=== PATIENT | female | born 1960 | race Caucasian/White ===

== ENCOUNTER 2017-06-23 07:37 | Day surgery (SDC) | payer OTHER ==
[~2017-06-23] VITALS: Ht 162.6 cm; Wt 77.3 kg
[2017-06-23] MEDS ORDERED: DEXILANT60 MG PO (09:38)
[2017-06-23] MEDS ORDERED: METFORMIN HCL500 M1 PO (09:38)
[2017-06-23] MEDS ORDERED: LISINOPRIL-HCTZ1 T13 PO (09:38)
[2017-06-23] MEDS ORDERED: CELEXA10 MG PO (09:38)
[2017-06-23 09:39] VITALS: BP 132/80; Ht 162.6 cm; Wt 77.3 kg
[2017-06-23 09:54] LABS: BASOPHILS 0.3 % (0-2); EOSINOPHILS 2.3 % (0-7); HEMATOCRIT 41.7 % (36.0-48.0); IMMATURE GRANULOCYTES 0.4 % (0-5); LYMPHOCYTES 33.5 % (15-50); MCH 29.4 pg (26.0-34.0); MCHC 33.6 g/dL (31.0-37.0); MCV 87.6 fL (80.0-100.0); MEAN PLATELET VOLUME 10.5 fL (7.4-10.4); MONOCYTES 7.4 % (2-11); NEUTROPHILS 56.1 % (40-80); PLATELET COUNT 294 10x3/uL (130-400); RBC 4.76 10x6/uL (4.00-5.40); RDW 12.7 % (11.5-14.5); WBC 7.1 10x3/uL (4.8-10.8)
[2017-06-23 10:12] LABS: CALC OSMOLALITY 278 mosm/kg (275-300); CALCIUM 10.1 mg/dL (8.5-10.1); CARBON DIOXIDE 30.2 mmol/L (21.0-32.0); CHLORIDE - SERUM 102 mmol/L (98-107); CREATININE - SERUM 0.6 mg/dL (0.6-1.3); GLUCOSE 108 mg/dL (74-106); POTASSIUM - SERUM 4.4 mmol/L (3.5-5.1); SODIUM 140 mmol/L (136-145); UREA NITROGEN 10 mg/dL (7-18); eGFR NON AFRICAN AMERICAN > 90 mL/min (90-120)
[2017-06-23] MEDS ORDERED: HYDROCODON-ACE1 EAC7 PO (10:22)
--- NOTE | 2017-06-23 11:07 | NUR ---
PILLOWS UNDER ABDOMEN AND HIPS ALSO
--- NOTE | 2017-06-23 12:40 | OP ---
PATIENT NAME: LISA OLGUIN MEDICAL RECORD: [id number] :60 LOCATION:[facility] ADMISSION DATE: SURGEON: LANEY DIAZ MD DATE OF OPERATION: 06/23/2017 SURGEON: Laney Diaz MD PREOPERATIVE DIAGNOSIS: Lipoma of the back. POSTOPERATIVE DIAGNOSIS: Lipoma of the back. PROCEDURE PERFORMED: Excisional biopsy of back lipoma. ANESTHESIA: General. COMPLICATIONS: None. SPECIMENS: Back lipoma, 8 x 6 x 4 cm. Case was clean. ESTIMATED BLOOD LOSS: 10 cc. OPERATIVE COURSE: After consent was obtained, the patient was taken to the operating room and placed in supine position on the operating table. Next, general anesthesia was given via endotracheal intubation. After a timeout was performed to confirm the correct patient and procedure, the back was then prepped and draped in typical sterile fashion. Then, 20 cc of local anesthetic were administered circumferentially around the lipoma. The skin incision was made with a 10-blade scalpel. Dissection continued through the subcutaneous tissue around the lipoma using Metzenbaum scissors. The lipoma was circumferentially dissected and sent for permanent pathology. The specimen size was 8 x 6 x 4 cm. The wound was then copiously irrigated and suctioned. Hemostasis was obtained with electrocautery. The wound was closed in multiple layers. Deep subcutaneous tissue was closed with 3-0 Vicryl suture. The epidermis was closed with 4-0 Monocryl. Skin was closed with Mastisol and Steri-Strips. At the end of the case, all needle and instrument counts were correct. No complications occurred. The patient was extubated and transferred to the PACU in stable condition. TRANSINT:[id number] Voice Confirmation ID: [id number] DOCUMENT ID: [id number] LANEY DIAZ MD at 1240 CC: [id number] DICTATION DATE: 06/23/17 1121 INVESTMENT EXECUTIVE: 06/23/17 1157 [place] [id number]
== END 2017-06-23 13:10 | disposition home or self-care (01) ==
LOC: D.OPS 07:37 → D.PAN 10:00 → D.OPS 10:00 → D.PAN 10:40 → D.OPS 10:40 → D.PAN 15:15
PROVIDERS: Anesthesiology
DX: D17.1 Benign lipomatous neoplasm of skin and subcutaneous tissue of trunk (principal); I10 Essential (primary) hypertension; E11.9 Type 2 diabetes mellitus without complications; K21.9 Gastro-esophageal reflux disease without esophagitis; Z01.812 Encounter for preprocedural laboratory examination